=== PATIENT | male | born 1975 | race Caucasian/White ===

== ENCOUNTER 2019-03-23 16:20 | Emergency (ER) | payer OTHER, SELFPAY ==
--- NOTE | ~2019-03-23 | XR_ITS ---
EXAMINATION: XR chest 2V EXAM DATE: 03/23/2019 16:58 INDICATION: Cough for 3 weeks. TECHNIQUE: Frontal and lateral projections of the chest obtained and reviewed. There is no prior hany dy for comparison. FINDINGS: The lungs are clear. There are no pleural effusions. The cardiomediastinal silhouette is within normal limits. There is no pneumothorax suspected. The bones and soft tissues are unremarkab le. IMPRESSION: No acute cardiopulmonary findings. Reviewed, dictated and finalized at location A. RAM STRATEGIST
--- NOTE | 2019-03-23 16:24 | ED.GENADULT ---
HPI - General Adult General Chief complaint: Upper Respiratory Infection Stated complaint: Congestion Time Seen by Provider: 03/23/19 16:24 Source: patient Mode of arrival: ambulatory Limitations: no limitations History of Present Illness HPI narrative: 43-year-old male patient presents to the [facility] with complaints of cold symptoms for the past 3 weeks. Patient states he has had chest pain, shortness of breath and a cough. Patient states he was running fever last fever he had was about 2 days ago. Patient states he has been feeling very tired and weak recently. Patient is an active smoker. Patient states he does not go to the doctor did not get a flu shot this year. Patient states he has been taking [id number] Mucinex for his symptoms. Patient states that it started off as a cold and he thought he was able to treat himself and is gotten progressively worse. Patient states he has had walking pneumonia before in the past and has had strep in the past. Patient also does report a sore throat that has been very consistent for the past couple weeks as well. Related Data Allergies Allergy/AdvReac Type Severity Reaction Status Date / Time No Known Allergies Allergy Mild Verified 08/03/08 09:51 Review of Systems Review of Systems: Narrative: CONSTITUTIONAL: Positive subjective fever, chills, and sweats. Positive fatigue EYES: Denies visual changes, redness, or discharge. ENT: Positive rhinorrhea, congestion, sore throat, denies otalgia. CARDIOVASCULAR: Positive chest pain, denies palpitations, or edema. RESPIRATORY: Positive productive cough with dyspnea. GASTROINTESTINAL: Denies abdominal pain, nausea, vomiting, or diarrhea. GENITOURINARY: Denies dysuria or hematuria. SKIN: Denies rash or itching. MUSCULOSKELETAL: Denies back pain, joint pain, or myalgia. NEUROLOGIC: Denies headache, numbness, or weakness. PSYCHIATRIC: Denies anxiety or depression. PMFSH Comments At the time of my signature I agree with nursing past medical history, surgical, social, and family history. There is no relevant family history pertinent to the presenting complaint. Exam Narrative: Exam Narrative: GENERAL: ill-appearing, well-nourished, and in no acute distress. HEAD: Normocephalic, atraumatic. EYES: PERRLA and EOMI. ENT: Nares with erythema and edema noted bilaterally, patent, no rhinorrhea or epistaxis. Mucous membranes moist. Posterior pharynx with erythema, 2+ tonsil enlargement but no exudates or lesions present. Bilateral TMs are clear no erythema or foreign bodies in the canal. NECK: Supple. No lymphadenopathy CHEST: Patient has some slight inspiratory wheezing noted to the left lower lobe.. No respiratory distress. Patient does have some coughing noted during exam but able to speak in clear complete sentences. No tripoding noted. HEART: Regular rate and rhythm. No murmur heard. Normal peripheral pulses. ABDOMEN: Soft, nontender, nondistended, normal active bowel sounds. EXTREMITIES: Normal range of motion. No edema. SKIN: Warm, dry, no rash. NEURO: No focal deficits. Alert and oriented x3. Course Reevaluation(s) Reevaluation #1: Notify patient that his strep today is negative and his x-ray is clear of any pneumonia. Discussed with patient this is most likely a bronchitis. Discussed with him we will discharge him home with an albuterol inhaler, oral steroids, daily antihistamine and nasal steroid. Patient's lungs are clear to bilateral upper lower lobes after the DuoNeb. Patient verbalized understanding denies any other questions or concerns at this time. Date: 03/23/19 Time: 17:35 Vital Signs Vital signs: Vital Signs Temperature 36.6 C 03/23/19 16:33 Pulse Rate 83 03/23/19 16:33 Respiratory Rate 16 03/23/19 16:33 Blood Pressure 136/75 03/23/19 16:33 Pulse Oximetry 97 03/23/19 16:33 Temperature 36.6 C 03/23/19 16:33 Pulse Rate 83 03/23/19 16:33 Respiratory Rate 16 03/23/19 16:33 Blood Pressure 1
[2019-03-23 16:33] VITALS: BP 136/75; PULSE 83; RESP 16; TEMP 36.6; O2SAT 97
[2019-03-23] MEDS: ALBUTEROL SULFATE NEB 2.5 MG/3 ML INH INHALATION (16:58)
[2019-03-23] MEDS: IPRATROPIUM BR 0.02% INH SOLN 0.5 MG/2.5 ML VIAL INHALATION (16:58)
[2019-03-23 17:38] VITALS: RESP 16; O2SAT 95
== END 2019-03-23 17:38 | disposition home or self-care (01) ==
PROVIDERS: Emergency Provider Nurse Practitioner Family
DX: J20.9 Acute bronchitis, unspecified (principal); J03.90 Acute tonsillitis, unspecified
CPT/HCPCS: 71046; 87081; 87880; 94640; 99213; G0463

== ENCOUNTER 2020-02-15 09:59 | Emergency (ER) | payer OTHER, SELFPAY ==
--- NOTE | ~2020-02-15 | XR_ITS ---
EXAMINATION: XR elbow RT min 3V DATE: 02/15/2020 10:15 INDICATION: Pulling injury with right elbow pain and swelling TECHNIQUE: Anteroposterior, two oblique and lateral views of the right elbow were obtained. COMPARISON: None. FINDINGS: Alignment is normal. No fracture or joint effusion. Moderate osteoarthritis at the right elbow with n onuniform joint space narrowing, prominent marginal osteophytes as well as multiple loose osteochondr al bodies. Soft tissues are unremarkable. IMPRESSION: 1. Moderate right elbow osteoarthritis. No acute osseous abnormality. Reviewed, dictated and finalized at location A. SERVICE SUPERVISOR
--- NOTE | 2020-02-15 10:13 | ED.GENADULT ---
HPI - General Adult General Chief complaint: Extremity Injury, Upper Stated complaint: Right Elbow Pain Time Seen by Provider: 02/15/20 10:17 Source: patient and RN notes reviewed Mode of arrival: ambulatory Limitations: no limitations History of Present Illness HPI narrative: 44-year-old male presents with complains of RT elbow tenderness and swelling for the past 2 to 3 weeks. Kuldeep reports that he jolted right arm while taking a boat loose at work. Kuldeep reports a popping feeling with certain movements. No treatment. No radiation of pain. Denies no new numbness or tingling of upper extremities. Exacerbation factor consist of movement. The relieving factor is immobility. Dominant hand is the RIGHT HAND. No suspected abuse. Denies fever or chills. The patient reports he have not been diagnosed with COVID-19. The patient reports he is not waiting for the results of a COVID-19 lab test. The patient reports he do not have fever, weakness, or fatigue. The patient reports he do not have a new or worsening cough or shortness of breath. Denies chest pain. The patient reports he do not have any rhinorrhea, congestion, loss of taste, sore throat, nausea, vomiting, abdominal pain, and diarrhea. Tolerating po intake well. Denies recent traveling. Denies concerns for COVID-19 or exposures been home with limited outdoor exposure except for essential household needs, work, and return home. At this time, patient is not suspected of having COVID-19. Some parts of this dictation were generated by voice recognition software and may contain typographical and/or grammatical inaccuracies. Related Data Allergies Allergy/AdvReac Type Severity Reaction Status Date / Time No Known Allergies Allergy Mild Verified 02/15/20 10:53 Review of Systems Review of Systems: Narrative: CONSTITUTIONAL: Denies fever, chills, sweats. EYES: Denies visual changes, redness, discharge. ENT: Denies rhinorrhea, congestion, sore throat, otalgia. CARDIOVASCULAR: Denies chest pain, palpitations, edema. RESPIRATORY: Denies dyspnea, wheezing, cough. GASTROINTESTINAL: Denies abdominal pain, nausea, vomiting, diarrhea. SKIN: Denies rash or itching. MUSCULOSKELETAL: Denies acute back pain or myalgia. Complains of RT elbow pain and swelling. NEUROLOGIC: Denies numbness or focal weakness. PSYCHIATRIC: Denies anxiety or depression. All other systems reviewed & are unremarkable except as noted in HPI and below. [facility] Past Medical History Medical History (Updated 02/16/20 @ 00:00 by Kyra Tovar) Closed hand fracture Bilateral Finger fracture, left Third (middle) Surgical History Surgical History (Updated 02/15/20 @ 10:32 by KARISSA Bonds) History of hand surgery Left third (middle) Family History Family History (Updated 02/15/20 @ 10:46 by KARISSA Bonds) Father Heart disease Cerebrovascular accident Mother Alive and well Social History Social History (Updated 02/15/20 @ 10:33 by KARISSA Bonds) Smoking packs per day: 1.5 Smoking cigarettes per day: 30.0 Years smoked: 25 Smoking pack-years: 37.50 Smoking status: Current every day smoker Tobacco type: cigarettes Second hand tobacco smoke exposure: Yes Alcohol intake: current Substance use: never Living arrangements: with family Occupation/Education: occupation Gender identity (if verbalized by the patient): Male Sexual Orientation (if Verbalized by the Patient): Straight or Heterosexual Exam Narrative: Exam Narrative: GENERAL: This is a well-nourished, well-developed patient, in no apparent distress. Speaks in full sentences and ambulates with steady gait without dyspnea HEAD: normocephalic, atraumatic. EYES: PERRL. Sclera clear/white. Vision is grossly intact. NECK: Supple and nontender with full range of motion without discomfort. No meningeal signs. CARDIOVASCULAR: Regular rate and rhythm without murmurs, gallops,
[2020-02-15 10:15] VITALS: BP 161/84; PULSE 90; RESP 16; TEMP 36.6; O2SAT 99
[2020-02-15 10:37] VITALS: BP 152/76
== END 2020-02-15 10:49 | disposition home or self-care (01) ==
PROVIDERS: Emergency Provider Nurse Practitioner Family
DX: S53.401A Unspecified sprain of right elbow, initial encounter (principal); X50.9XXA Other and unspecified overexertion or strenuous movements or postures, initial encounter; M19.021 Primary osteoarthritis, right elbow; F17.210 Nicotine dependence, cigarettes, uncomplicated
CPT/HCPCS: 73080; 99213; G0463

== ENCOUNTER 2021-04-05 16:18 | Emergency (ER) | payer OTHER, SELFPAY ==
[2021-04-05 16:27] VITALS: BP 182/91; PULSE 107; RESP 18; TEMP 36.4; O2SAT 97
--- NOTE | 2021-04-05 16:33 | ED.SKABFB ---
HPI - Skin/Abscess/Foreign Bdy General Chief complaint: Skin/Abscess/Foreign Body Stated complaint: rash Time Seen by Provider: 04/05/21 16:30 Source: patient, RN notes reviewed and old records reviewed Mode of arrival: ambulatory Limitations: no limitations History of Present Illness HPI narrative: 45-year-old male presents to the [facility] with a rash to his butt cheeks and lower abdomen. States been going on for couple weeks. Also started having a rash to the bilateral antecubital areas MD complaint: rash Related Data Allergies Allergy/AdvReac Type Severity Reaction Status Date / Time No Known Allergies Allergy Mild Verified 04/05/21 16:25 Review of Systems Review of Systems: All systems reviewed & are unremarkable except as noted in HPI and below Constitutional: Constitutional: Reports no additional constitutional complaints, Denies chills, Denies fever(s), Denies headache(s) and Denies weakness Eyes: Eyes: Reports no additional eye complaints and Denies change in vision ENT: Reports system reviewed and no additional complaints, except as documented, Denies dysphagia, Denies dizziness, Denies headache(s), Denies nasal congestion and Denies sore throat Cardiovascular: Cardiovascular: Reports no additional cardiovascular complaints, Denies chest pain, Denies syncope and Denies dyspnea Respiratory: Respiratory: Reports no additional respiratory complaints, Denies chest congestion, Denies cough, Denies dyspnea and Denies wheezing Gastrointestinal: Gastrointestinal: Denies dysphagia Musculoskeletal: Musculoskeletal: Reports no additional musculoskeletal complaints and Denies numbness Integumentary/Breasts: Skin/Breast: Reports as per HPI and Reports rash Neurologic: Reports system reviewed and no additional complaints, except as documented, Denies dizziness, Denies syncope, Denies headache(s), Denies focal weakness, Denies numbness and Denies weakness Psychiatric: Psychiatric: Reports no additional psychiatric complaints Allergic/Immunologic: Allergic/Immunologic: Reports no additional allergic/immunologic complaints and Denies wheezing PMFSH Past Medical History Medical History (Updated 04/05/21 @ 16:48 by Oralia Lees) Closed hand fracture Bilateral Finger fracture, left Third (middle) Surgical History Surgical History History of hand surgery Left third (middle) Family History Family History Father Heart disease Cerebrovascular accident Mother Alive and well Social History Social History Smoking packs per day: 1.5 Smoking cigarettes per day: 30.0 Years smoked: 25 Smoking pack-years: 37.50 Smoking status: Current every day smoker Tobacco type: cigarettes Second hand tobacco smoke exposure: Yes Alcohol intake: current Substance use: never Gender identity (if verbalized by the patient): Male Sexual Orientation (if Verbalized by the Patient): Straight or Heterosexual Comments At the time of my signature, I reviewed and agree with the nursing past medical, surgical, social, and family history. There is no relevant family history pertinent to the patient complaint. Exam Const: General: healthy appearing, no acute distress and alert Nutritional Appearance: well nourished Orientation/consciousness: patient oriented x3 Limitations: no limitations HENMT: Head: normal to inspection Ears: external ears normal Eyes: Pupils: Equal, round and reactive pupils present Neck: Neck: normal visual inspection, no lymphadenopathy and no meningeal signs Chest: Chest palpation & inspection: normal inspection of the chest Resp: Effort & Inspection: normal respiratory effort Auscultation: clear to auscultation bilaterally Cardio: Rate: regular rate Rhythm: regular rhythm : General: Yes no CVA tenderness Skin: General skin
== END 2021-04-05 16:52 | disposition home or self-care (01) ==
PROVIDERS: Emergency Provider Nurse Practitioner
DX: L73.9 Follicular disorder, unspecified (principal); L30.9 Dermatitis, unspecified; F17.210 Nicotine dependence, cigarettes, uncomplicated
CPT/HCPCS: 99213; G0463